=== PATIENT | female | born 1935 | race Hispanic/Latino ===

== ENCOUNTER 2021-04-23 10:30 | Outpatient (CLI) | payer MEDICARE | END 2021-04-23 10:31 | disposition home or self-care (01) | LOC: DTY/OP 10:30 | PROVIDERS: ATTEND Family Medicine Sports Medicine | DX: N18.4 Chronic kidney disease, stage 4 (severe) (principal) | CPT/HCPCS: 97802 ==

== ENCOUNTER 2023-03-13 12:02 | Observation (INO) | payer MEDICARE ==
[2023-03-13] MEDS ORDERED: fentaNYL 50 mcg/mL 1 mL Vial ONE ×2 (12:59→15:32)
[2023-03-13] MEDS ORDERED: CEFAZOLIN 2 GM VIAL ONE (13:01)
[2023-03-13] MEDS ORDERED: Sodium Chloride 0.9% 100 ML ONE (13:01)
[2023-03-13] MEDS ORDERED: PROPOFOL 200 MG/20 ML VIAL ONE (13:22)
[2023-03-13] MEDS ORDERED: Ondansetron HCl/PF 4 MG/2 ML Vial IVP PRN (13:48)
[2023-03-13] MEDS ORDERED: Promethazine HCl 25 MG/ML VIAL IM PRN (13:48)
[2023-03-13] MEDS ORDERED: Morphine Sulfate 2 MG/ML SYRINGE SLOW IVP PRN (13:48)
[2023-03-13 16:08] VITALS: BMI 31.8
[2023-03-13] MEDS: Ketorolac Tromethamine 30 MG/ML VIAL IVP PRN (19:53)
[2023-03-13] MEDS ORDERED: Amlodipine 10 MG TAB PER TUBE SCH (21:00)
[2023-03-13] MEDS ORDERED: Rosuvastatin 10 MG TAB PER TUBE SCH (21:00)
[2023-03-14] MEDS: Ketorolac Tromethamine 30 MG/ML VIAL IVP PRN (03:32)
[2023-03-14] MEDS ORDERED: Levothyroxine Sodium 100 MCG TAB PER TUBE SCH (06:00)
[2023-03-14] MEDS ORDERED: Calcitriol 0.25 MCG CAP PO SCH (09:00)
[2023-03-14] MEDS ORDERED: Metoprolol Tartrate 25 MG TAB PO SCH (09:00)
[2023-03-14 09:09] VITALS: BP 130/78; TEMP 98
[2023-03-14] MEDS ORDERED: GASTROGRAFIN 30 ML BOT ONE (09:25)
== END 2023-03-14 10:28 | disposition home or self-care (01) ==
LOC: SDC 12:02 → T4-B 14:27
PROVIDERS: ADMIT Internal Medicine Gastroenterology; ATTEND Internal Medicine Gastroenterology
PROC: 0DH63UZ Insertion of Feeding Device into Stomach, Percutaneous Approach (ICD-10-PCS; principal; 2023-03-13)
DX: R13.12 Dysphagia, oropharyngeal phase (principal); C76.0 Malignant neoplasm of head, face and neck; I10 Essential (primary) hypertension; E78.5 Hyperlipidemia, unspecified; C32.9 Malignant neoplasm of larynx, unspecified; E86.0 Dehydration; R63.4 Abnormal weight loss; Z79.899 Other long term (current) drug therapy; Z90.710 Acquired absence of both cervix and uterus; Z96.642 Presence of left artificial hip joint
CPT/HCPCS: 43246; 74150; 82565; J3010; J1885; J2704; J3490; Q9963

== ENCOUNTER 2023-03-20 13:56 | Outpatient (CLI) | payer MEDICARE ==
[~2023-03-20 13:56] MED LIST: Iopamidol 370 76% 100 ML VIAL ONE
== END 2023-03-20 13:57 | disposition home or self-care (01) ==
LOC: CT 13:56
PROVIDERS: ATTEND Radiology Radiation Oncology
DX: R06.02 Shortness of breath (principal); I26.99 Other pulmonary embolism without acute cor pulmonale
CPT/HCPCS: 71275

== ENCOUNTER 2023-03-20 14:34 | Inpatient (IN) | payer MEDICARE ==
[2023-03-20 15:17] LABS: Hematocrit 26.5 % (36.0-47.0); Hemoglobin 9.2 g/dL (12.0-16.0); Mean Corpuscular HGB CONC 34.7 g/dL (32.0-36.0); Mean Corpuscular Hemoglobin 31.8 pg (27.0-31.0); Mean Corpuscular Volume 91.7 fl (78.0-98.0); Mean Platelet Volume 10.8 fL (7.4-10.4); RBC Distribution Width 13.7 % (11.5-14.5); Red Blood Cell (RBC) Count 2.89 mill/uL (4.20-5.40); White Blood Cell (WBC) Count 5.6 10x3/uL (4.8-10.8)
[2023-03-20 15:42] LABS: ALT (SGPT) 12 U/L (8-55); AST (SGOT) 15 U/L (5-34); Albumin 3.4 g/dL (3.4-4.8); Anion Gap 17 mmol/L (10-20); BUN (Urea Nitrogen) 16 mg/dL (9.8-20.1); Bilirubin, Total 0.5 mg/dL (0.2-1.2); Calc. Creatinine Clearance 0 mL/min (70-130); Carbon Dioxide 22 mmol/L (23-31); Chloride 99 mmol/L (98-107); Estimated GFR 56; Globulin 2.4 g/dL (2.4-3.5); Glucose 113 mg/dL (83-110); Potassium 3.8 mmol/L (3.5-5.1); Protein, Total 5.8 g/dL (5.8-8.1); Sodium 134 mmol/L (136-145)
[2023-03-20 15:49] LABS: Alkaline Phosphatase 63 U/L (40-110); Calcium 8.1 mg/dL (7.8-10.44)
[2023-03-20 15:56] LABS: Delete Auto Diff?? YES; Manual Diff?? YES; Platelet Count 66 10x3/uL (130-400)
[2023-03-20 16:02] LABS: INR-International Normal Ratio 1.1; PTT 26.5 sec (22.9-36.1); Prothrombin Time 14.1 sec (12.0-14.7)
[2023-03-20 16:03] LABS: CKMB 2.1 ng/mL (0-6.6)
[2023-03-20 16:24] LABS: Band 15 % (5-11); Burr Cells SLIGHT = 2-5 cells HPF (0-1); CellaVision Operator ID LAB.KB; Dohle Bodies SLIGHT; Hypersegmented Neutrophil SLIGHT (None Seen); Lymphocytes 3 % (21-51); Macrocytosis SLIGHT = 6-15 cells HPF (0-5); Monocytes 4 % (0-10); Neutrophil 78 % (42-75); Ovalocytes SLIGHT = 2-5 cells HPF (0-1); Platelet Adequacy Comment Platelets Decreased; Smudge Cells 8.9 %; Total Cell Count 101
[2023-03-20] MEDS ORDERED: Heparin 25,000 units/D5W 500 ML ONE (16:43)
[2023-03-20] MEDS ORDERED: Heparin 10,000 UNITS/ 10 ML VIAL ONE (16:43)
[2023-03-20] MEDS ORDERED: Ondansetron PF 4 MG/2 ML Vial IVP PRN (17:22)
[2023-03-20] MEDS ORDERED: Ondansetron ODT 4 MG TAB PO PRN (17:22)
[2023-03-20] MEDS ORDERED: Heparin 10,000 UNITS/ 10 ML VIAL SLOW IVP SCH (18:00)
[2023-03-20] MEDS ORDERED: Heparin 25,000 units/D5W 500 ML IVPB SCH (18:00)
[2023-03-20 18:20] LABS: Hematocrit 25.2 % (36.0-47.0); Hemoglobin 8.7 g/dL (12.0-16.0)
[2023-03-20 18:27] LABS: Platelet Count 64 10x3/uL (130-400)
[2023-03-20 18:42] LABS: Troponin I 0.056 ng/mL (< 0.028)
[2023-03-20 18:52] LABS: PTT Greater than 250.0 sec (22.9-36.1)
[2023-03-20 21:30] LABS: Troponin I 0.064 ng/mL (< 0.028)
[2023-03-21 05:19] VITALS: BMI 31.1
[2023-03-21 05:31] LABS: #Monocytes 0.4 thou/uL (0.11-0.59); #Neutrophils 3.2 thou/uL (1.40-6.50); %Basophils 0.5 % (0.0-1.0); %Eosinophils 0.5 % (0.0-10.0); %Lymphocytes 11.7 % (21.0-51.0); %Monocytes 9.1 % (0.0-10.0); %Neutrophils 77.5 % (42.0-75.0); Hematocrit 26.4 % (36.0-47.0); Hemoglobin 8.9 g/dL (12.0-16.0); Mean Corpuscular HGB CONC 33.7 g/dL (32.0-36.0); Mean Corpuscular Hemoglobin 31.7 pg (27.0-31.0); Mean Platelet Volume 10.7 fL (7.4-10.4); RBC Distribution Width 13.9 % (11.5-14.5); Red Blood Cell (RBC) Count 2.81 mill/uL (4.20-5.40); White Blood Cell (WBC) Count 4.2 10x3/uL (4.8-10.8)
[2023-03-21 05:48] LABS: Platelet Count 50 10x3/uL (130-400)
[2023-03-21 05:56] LABS: Anion Gap 14 mmol/L (10-20); BUN (Urea Nitrogen) 12 mg/dL (9.8-20.1); Calc. Creatinine Clearance 60 mL/min (70-130); Calcium 8.3 mg/dL (7.8-10.44); Carbon Dioxide 25 mmol/L (23-31); Chloride 103 mmol/L (98-107); Estimated GFR 69; Glucose 96 mg/dL (83-110); Potassium 3.7 mmol/L (3.5-5.1); Sodium 138 mmol/L (136-145)
[2023-03-21] MEDS ORDERED: [UNRECOGNIZED DRUG - REMARK] IVPB PRN (11:11)
[2023-03-21] MEDS ORDERED: Lidocaine-Prilocaine 2.5% Cream 5 GM TUBE TOP PRN (12:00)
[2023-03-21] MEDS: Cefepime 1 GM in Sodium Chloride 0.9% 100 ML IVPB SCH ×2 (12:32→23:49)
[2023-03-21] MEDS ORDERED: Vancomycin 1.5 GRAM/300 ML BAG 1.5 GM in Premix Bag 1 BAG IVPB SCH (13:00)
[2023-03-21] MEDS ORDERED: Magnesium 2 GM/50 ML(in water) 2 GM in Premix Bag 1 BAG IVPB SCH (13:30)
[2023-03-21] MEDS ORDERED: hydrALAZINE 20 MG/ML VIAL SLOW IVP PRN (16:59)
[2023-03-21 17:45] LABS: Hemoglobin 9.9 g/dL (12.0-16.0)
[2023-03-21 17:47] LABS: Platelet Count 34 10x3/uL (130-400)
[2023-03-21] MEDS: Amlodipine 10 MG TAB PO SCH (21:59)
[2023-03-21] MEDS: Rosuvastatin 10 MG TAB PO SCH (21:59)
[2023-03-21] MEDS: Acetaminophen 325 MG TAB PO PRN (23:10)
[2023-03-22] MEDS: Levothyroxine Sodium 100 MCG TAB PO SCH (06:25)
[2023-03-22 07:46] LABS: Hematocrit 23.9 % (36.0-47.0); Hemoglobin 8.2 g/dL (12.0-16.0); Mean Corpuscular HGB CONC 34.3 g/dL (32.0-36.0); Mean Corpuscular Hemoglobin 31.5 pg (27.0-31.0); Mean Corpuscular Volume 91.9 fl (78.0-98.0); Mean Platelet Volume 9.8 fL (7.4-10.4); Platelet Count 98 10x3/uL (130-400); White Blood Cell (WBC) Count 4.7 10x3/uL (4.8-10.8)
[2023-03-22 07:55] LABS: Manual Diff?? YES
[2023-03-22 07:56] LABS: Delete Auto Diff?? YES
[2023-03-22 08:08] LABS: Anion Gap 13 mmol/L (10-20); BUN (Urea Nitrogen) 10 mg/dL (9.8-20.1); Calc. Creatinine Clearance 60 mL/min (70-130); Calcium 8.5 mg/dL (7.8-10.44); Carbon Dioxide 26 mmol/L (23-31); Chloride 104 mmol/L (98-107); Estimated GFR 69; Glucose 135 mg/dL (83-110); Magnesium 1.7 mg/dL (1.6-2.6); Potassium 3.1 mmol/L (3.5-5.1); Sodium 140 mmol/L (136-145)
[2023-03-22] MEDS: Magnesium Oxide 400 MG TAB PO SCH (08:30)
[2023-03-22] MEDS: Calcitriol 0.25 MCG CAP PO SCH (08:30)
[2023-03-22 10:47] LABS: Band 38 % (5-11); Dohle Bodies SLIGHT; Eosinophils 2 % (0-10); Lymphocytes 2 % (21-51); Metamyelocyte 1 % (0-0); Monocytes 4 % (0-10); Neutrophil 52 % (42-75); Nucleated RBC (Manual Ct) 1 % (0); Platelet Adequacy Comment Platelets Decreased
[2023-03-22 10:49] LABS: Polychromasia SLIGHT = 2-3 cells (100X) (0-2/hpf)
[2023-03-22] MEDS: Cefepime 1 GM in Sodium Chloride 0.9% 100 ML IVPB SCH ×2 (13:37→23:38)
[2023-03-22] MEDS ORDERED: Electrolyte Replacement Protocol 1 EACH FS SCH (13:45)
[2023-03-22] MEDS ORDERED: Potassium Chloride 20 MEQ TAB PO SCH (13:45)
[2023-03-22] MEDS ORDERED: Electrolyte Replacement Protocol FS PRN (13:45)
[2023-03-22] MEDS: VANCOMYCIN 1.25 GM/250 ML BAG 1.25 GM in Premix Bag 1 BAG IVPB SCH (14:38)
[2023-03-22 18:58] LABS: Hematocrit 25.9 % (36.0-47.0)
[2023-03-22 19:01] LABS: Platelet Count 83 10x3/uL (130-400)
[2023-03-22] MEDS: Rosuvastatin 10 MG TAB PO SCH (20:56)
[2023-03-22] MEDS: Amlodipine 10 MG TAB PO SCH (20:56)
[2023-03-23 04:47] LABS: #Eosinphils 0.1 thou/uL (0.0-0.7); #Monocytes 0.3 thou/uL (0.11-0.59); #Neutrophils 2.4 thou/uL (1.40-6.50); %Basophils 0.3 % (0.0-1.0); %Eosinophils 1.6 % (0.0-10.0); %Lymphocytes 11.5 % (21.0-51.0); %Monocytes 10.6 % (0.0-10.0); %Neutrophils 73.5 % (42.0-75.0); Hematocrit 22.5 % (36.0-47.0); Hemoglobin 7.9 g/dL (12.0-16.0); Mean Corpuscular HGB CONC 35.1 g/dL (32.0-36.0); Mean Corpuscular Hemoglobin 31.5 pg (27.0-31.0); Mean Corpuscular Volume 89.6 fl (78.0-98.0); RBC Distribution Width 14.3 % (11.5-14.5); Red Blood Cell (RBC) Count 2.51 mill/uL (4.20-5.40); White Blood Cell (WBC) Count 3.2 10x3/uL (4.8-10.8)
[2023-03-23 05:00] LABS: Platelet Count 75 10x3/uL (130-400)
[2023-03-23 05:01] LABS: Mean Platelet Volume 10.3 fL (7.4-10.4)
[2023-03-23 05:19] LABS: Anion Gap 11 mmol/L (10-20); BUN (Urea Nitrogen) 11 mg/dL (9.8-20.1); Calc. Creatinine Clearance 60 mL/min (70-130); Calcium 8.4 mg/dL (7.8-10.44); Carbon Dioxide 26 mmol/L (23-31); Chloride 105 mmol/L (98-107); Estimated GFR 69; Glucose 136 mg/dL (83-110); Magnesium 1.5 mg/dL (1.6-2.6); Potassium 3.3 mmol/L (3.5-5.1); Sodium 139 mmol/L (136-145)
[2023-03-23] MEDS: Levothyroxine Sodium 100 MCG TAB PO SCH (06:39)
[2023-03-23] MEDS ORDERED: Potassium Bicarbonate/Cit Ac 20 MEQ TAB PO SCH (08:00)
[2023-03-23] MEDS ORDERED: Magnesium 2 GM/50 ML(in water) 2 GM in Premix Bag 1 BAG IVPB SCH (08:00)
[2023-03-23] MEDS ORDERED: Potassium Chloride 20 MEQ TAB PO SCH (08:00)
[2023-03-23] MEDS: PHOS-NAK 1 PKT PACK PO SCH ×2 (09:09→12:36)
[2023-03-23] MEDS: Calcitriol 0.25 MCG CAP PO SCH (09:09)
[2023-03-23] MEDS: Magnesium Oxide 400 MG TAB PO SCH (09:10)
[2023-03-23] MEDS: Cefepime 1 GM in Sodium Chloride 0.9% 100 ML IVPB SCH (12:36)
[2023-03-23 12:40] LABS: Vancomycin, Trough 15.9 ug/mL
[2023-03-23] MEDS: VANCOMYCIN 1.25 GM/250 ML BAG 1.25 GM in Premix Bag 1 BAG IVPB SCH (15:06)
[2023-03-23] MEDS: Rosuvastatin 10 MG TAB PO SCH (20:12)
[2023-03-23] MEDS: Amlodipine 10 MG TAB PO SCH (20:12)
[2023-03-24] MEDS: Cefepime 1 GM in Sodium Chloride 0.9% 100 ML IVPB SCH ×2 (00:28→12:57)
[2023-03-24 04:33] LABS: #Monocytes 0.4 thou/uL (0.11-0.59); %Basophils 0.3 % (0.0-1.0); %Eosinophils 1.3 % (0.0-10.0); %Monocytes 12.3 % (0.0-10.0); %Neutrophils 65.4 % (42.0-75.0); Hemoglobin 8.6 g/dL (12.0-16.0); Mean Corpuscular HGB CONC 34.4 g/dL (32.0-36.0); Mean Corpuscular Hemoglobin 31.9 pg (27.0-31.0); Mean Platelet Volume 10.2 fL (7.4-10.4); RBC Distribution Width 14.7 % (11.5-14.5)
[2023-03-24 04:38] LABS: Mean Corpuscular Volume 92.6 fl (78.0-98.0); Platelet Count 80 10x3/uL (130-400)
[2023-03-24 05:02] LABS: Anion Gap 13 mmol/L (10-20); BUN (Urea Nitrogen) 13 mg/dL (9.8-20.1); Calc. Creatinine Clearance 60 mL/min (70-130); Calcium 8.6 mg/dL (7.8-10.44); Carbon Dioxide 24 mmol/L (23-31); Chloride 104 mmol/L (98-107); Estimated GFR 68; Glucose 111 mg/dL (83-110); Magnesium 1.4 mg/dL (1.6-2.6); Sodium 137 mmol/L (136-145)
[2023-03-24] MEDS: Levothyroxine Sodium 100 MCG TAB PO SCH (05:09)
[2023-03-24] MEDS ORDERED: Magnesium Sulfate In Water 4 GM in Premix Bag 1 BAG IVPB SCH (08:00)
[2023-03-24] MEDS: Calcitriol 0.25 MCG CAP PO SCH (10:17)
[2023-03-24] MEDS: Magnesium Oxide 400 MG TAB PO SCH (10:17)
[2023-03-24] MEDS: Acetaminophen 325 MG TAB PO PRN (10:25)
[2023-03-24] MEDS: VANCOMYCIN 1.25 GM/250 ML BAG 1.25 GM in Premix Bag 1 BAG IVPB SCH (15:03)
[2023-03-24 18:29] LABS: Hematocrit 24.3 % (36.0-47.0); Hemoglobin 8.3 g/dL (12.0-16.0)
[2023-03-24 18:36] LABS: Platelet Count 85 10x3/uL (130-400)
[2023-03-24] MEDS: Amlodipine 10 MG TAB PO SCH (20:34)
[2023-03-24] MEDS: Rosuvastatin 10 MG TAB PO SCH (20:35)
[2023-03-24] MEDS: Apixaban 5 MG TAB PO SCH (20:35)
[2023-03-25] MEDS: Cefepime 1 GM in Sodium Chloride 0.9% 100 ML IVPB SCH ×2 (00:15→12:32)
[2023-03-25 04:08] LABS: #Eosinphils 0.1 thou/uL (0.0-0.7); #Monocytes 0.4 thou/uL (0.11-0.59); #Neutrophils 1.7 thou/uL (1.40-6.50); %Basophils 0.7 % (0.0-1.0); %Eosinophils 1.9 % (0.0-10.0); %Lymphocytes 13.1 % (21.0-51.0); %Monocytes 14.9 % (0.0-10.0); %Neutrophils 64.9 % (42.0-75.0); Hemoglobin 7.8 g/dL (12.0-16.0); Mean Corpuscular HGB CONC 33.9 g/dL (32.0-36.0); Mean Corpuscular Hemoglobin 31.7 pg (27.0-31.0); Mean Corpuscular Volume 93.5 fl (78.0-98.0); Mean Platelet Volume 10.4 fL (7.4-10.4); RBC Distribution Width 15.1 % (11.5-14.5); Red Blood Cell (RBC) Count 2.46 mill/uL (4.20-5.40); White Blood Cell (WBC) Count 2.7 10x3/uL (4.8-10.8)
[2023-03-25 04:09] LABS: Platelet Count 85 10x3/uL (130-400)
[2023-03-25 04:29] LABS: Anion Gap 11 mmol/L (10-20); BUN (Urea Nitrogen) 15 mg/dL (9.8-20.1); Calc. Creatinine Clearance 60 mL/min (70-130); Carbon Dioxide 25 mmol/L (23-31); Chloride 103 mmol/L (98-107); Potassium 4.1 mmol/L (3.5-5.1); Sodium 135 mmol/L (136-145)
[2023-03-25 04:30] LABS: Calcium 8.6 mg/dL (7.8-10.44); Estimated GFR 69; Glucose 136 mg/dL (83-110)
[2023-03-25] MEDS: Levothyroxine Sodium 100 MCG TAB PO SCH (05:02)
[2023-03-25] MEDS ORDERED: Magnesium 2 GM/50 ML(in water) 2 GM in Premix Bag 1 BAG IVPB SCH (09:00)
[2023-03-25] MEDS: Apixaban 5 MG TAB PO SCH ×2 (09:26→21:45)
[2023-03-25] MEDS: Magnesium Oxide 400 MG TAB PO SCH (09:26)
[2023-03-25] MEDS: Calcitriol 0.25 MCG CAP PO SCH (09:26)
[2023-03-25] MEDS: VANCOMYCIN 1.25 GM/250 ML BAG 1.25 GM in Premix Bag 1 BAG IVPB SCH (13:30)
[2023-03-25] MEDS: Amlodipine 10 MG TAB PO SCH (21:45)
[2023-03-25] MEDS: Acetaminophen 325 MG TAB PO PRN (21:45)
[2023-03-25] MEDS: Rosuvastatin 10 MG TAB PO SCH (21:45)
[2023-03-26] MEDS: Cefepime 1 GM in Sodium Chloride 0.9% 100 ML IVPB SCH ×2 (00:38→12:57)
[2023-03-26 04:18] LABS: #Eosinphils 0.1 thou/uL (0.0-0.7); #Monocytes 0.6 thou/uL (0.11-0.59); #Neutrophils 1.8 thou/uL (1.40-6.50); %Monocytes 18.6 % (0.0-10.0); %Neutrophils 58.5 % (42.0-75.0); Hematocrit 25.3 % (36.0-47.0); Hemoglobin 8.6 g/dL (12.0-16.0); Mean Corpuscular Hemoglobin 32.1 pg (27.0-31.0); Mean Corpuscular Volume 94.4 fl (78.0-98.0); Mean Platelet Volume 10.6 fL (7.4-10.4); RBC Distribution Width 15.7 % (11.5-14.5); Red Blood Cell (RBC) Count 2.68 mill/uL (4.20-5.40); White Blood Cell (WBC) Count 3.1 10x3/uL (4.8-10.8)
[2023-03-26 04:28] LABS: Platelet Count 116 10x3/uL (130-400)
[2023-03-26 04:42] LABS: Magnesium 1.9 mg/dL (1.6-2.6)
[2023-03-26] MEDS: Levothyroxine Sodium 100 MCG TAB PO SCH (05:38)
[2023-03-26] MEDS ORDERED: Magnesium 2 GM/50 ML(in water) 2 GM in Premix Bag 1 BAG IVPB SCH (09:00)
[2023-03-26] MEDS: Apixaban 5 MG TAB PO SCH ×2 (09:05→20:55)
[2023-03-26] MEDS: Magnesium Oxide 400 MG TAB PO SCH (09:05)
[2023-03-26] MEDS: Calcitriol 0.25 MCG CAP PO SCH (09:05)
[2023-03-26 12:16] LABS: Vancomycin, Trough 19.9 ug/mL
[2023-03-26] MEDS ORDERED: Vancomycin 1 GM in Premix Bag 1 BAG IVPB SCH (15:00)
[2023-03-26 19:09] LABS: Hematocrit 24.8 % (36.0-47.0); Hemoglobin 8.3 g/dL (12.0-16.0); Platelet Count 127 10x3/uL (130-400)
[2023-03-26] MEDS: Amlodipine 10 MG TAB PO SCH (20:54)
[2023-03-26] MEDS: Rosuvastatin 10 MG TAB PO SCH (20:54)
[2023-03-27] MEDS: Cefepime 1 GM in Sodium Chloride 0.9% 100 ML IVPB SCH (00:23)
[2023-03-27 04:57] LABS: #Eosinphils 0.1 thou/uL (0.0-0.7); #Monocytes 0.5 thou/uL (0.11-0.59); %Basophils 0.6 % (0.0-1.0); %Eosinophils 2.8 % (0.0-10.0); %Lymphocytes 15.7 % (21.0-51.0); %Monocytes 16.4 % (0.0-10.0); %Neutrophils 61.4 % (42.0-75.0); Hematocrit 25.5 % (36.0-47.0); Hemoglobin 8.5 g/dL (12.0-16.0); Mean Corpuscular HGB CONC 33.3 g/dL (32.0-36.0); Mean Corpuscular Hemoglobin 32.1 pg (27.0-31.0); Mean Corpuscular Volume 96.2 fl (78.0-98.0); Mean Platelet Volume 9.9 fL (7.4-10.4); Platelet Count 134 10x3/uL (130-400); RBC Distribution Width 15.9 % (11.5-14.5); Red Blood Cell (RBC) Count 2.65 mill/uL (4.20-5.40); White Blood Cell (WBC) Count 3.2 10x3/uL (4.8-10.8)
[2023-03-27 05:29] LABS: Anion Gap 12 mmol/L (10-20); BUN (Urea Nitrogen) 20 mg/dL (9.8-20.1); Calc. Creatinine Clearance 59 mL/min (70-130); Calcium 9.5 mg/dL (7.8-10.44); Carbon Dioxide 26 mmol/L (23-31); Chloride 104 mmol/L (98-107); Estimated GFR 67; Glucose 104 mg/dL (83-110); Magnesium 1.7 mg/dL (1.6-2.6); Potassium 4.8 mmol/L (3.5-5.1); Sodium 137 mmol/L (136-145)
[2023-03-27] MEDS: Levothyroxine Sodium 100 MCG TAB PO SCH (05:38)
[2023-03-27 07:42] VITALS: BP 133/65; TEMP 98
[2023-03-27] MEDS ORDERED: Magnesium 2 GM/50 ML(in water) 2 GM in Premix Bag 1 BAG IVPB SCH (08:00)
[2023-03-27] MEDS: Apixaban 5 MG TAB PO SCH (08:33)
[2023-03-27] MEDS: Calcitriol 0.25 MCG CAP PO SCH (08:33)
[2023-03-27] MEDS: Magnesium Oxide 400 MG TAB PO SCH (08:33)
== END 2023-03-27 10:30 | disposition home health service (06) | DRG 146 ==
LOC: ERS 14:34 → ERHOLD 17:26 → 2NO 21:35
PROVIDERS: ADMIT Internal Medicine; ATTEND Internal Medicine
PROC: 6A551Z2 Pheresis of Platelets, Multiple (ICD-10-PCS; principal; 2023-03-21)
DX: C11.9 Malignant neoplasm of nasopharynx, unspecified (principal); I26.99 Other pulmonary embolism without acute cor pulmonale; J96.01 Acute respiratory failure with hypoxia; I82.432 Acute embolism and thrombosis of left popliteal vein; K94.22 Gastrostomy infection; I24.8 Other forms of acute ischemic heart disease; Y83.8 Other surgical procedures as the cause of abnormal reaction of the patient, or of later complication, without mention of misadventure at the time of the procedure; C30.0 Malignant neoplasm of nasal cavity; Z96.643 Presence of artificial hip joint, bilateral; E78.2 Mixed hyperlipidemia; M06.9 Rheumatoid arthritis, unspecified; I12.9 Hypertensive chronic kidney disease with stage 1 through stage 4 chronic kidney disease, or unspecified chronic kidney disease; N18.9 Chronic kidney disease, unspecified; D69.6 Thrombocytopenia, unspecified; Z79.890 Hormone replacement therapy; Z79.899 Other long term (current) drug therapy; Z98.49 Cataract extraction status, unspecified eye; T45.1X5A Adverse effect of antineoplastic and immunosuppressive drugs, initial encounter; E87.6 Hypokalemia; E83.42 Hypomagnesemia
CPT/HCPCS: 36415; 36416; 36430; 71275; 77386; 80048; 80053; 80202; 82248; 82553; 83615; 83735; 84100; 84484; 84550; 85014; 85018; 85025; 85049; 85610; 85730; 86850; 86900; 86901; 93005; 93306; 94760; 96365; 96366; 96375; 97139; J0692; J1644; J1650; J3370; J3370-JW; J3475; J3490; P9035; Q9967

== ENCOUNTER 2023-04-25 16:45 | Observation (INO) | payer MEDICARE ==
[~2023-04-25 16:45] MED LIST changes: -Iopamidol 370 76% 100 ML VIAL ONE; +Iopamidol-370 76% 500 ML MDV (1 ML CHARGE) ONE
[2023-04-25 17:59] LABS: #Monocytes 0.7 thou/uL (0.11-0.59); #Neutrophils 5.7 thou/uL (1.40-6.50); %Basophils 0.4 % (0.0-1.0); %Eosinophils 0.4 % (0.0-10.0); %Lymphocytes 14.6 % (21.0-51.0); %Monocytes 9.5 % (0.0-10.0); %Neutrophils 74.7 % (42.0-75.0); Hematocrit 30.9 % (36.0-47.0); Hemoglobin 10.4 g/dL (12.0-16.0); Mean Corpuscular HGB CONC 33.7 g/dL (32.0-36.0); Mean Corpuscular Volume 98.1 fl (78.0-98.0); Mean Platelet Volume 8.8 fL (7.4-10.4); Platelet Count 260 10x3/uL (130-400); RBC Distribution Width 15.5 % (11.5-14.5); Red Blood Cell (RBC) Count 3.15 mill/uL (4.20-5.40); White Blood Cell (WBC) Count 7.6 10x3/uL (4.8-10.8)
[2023-04-25 18:25] LABS: ALT (SGPT) 15 U/L (8-55); AST (SGOT) 21 U/L (5-34); Albumin 3.8 g/dL (3.4-4.8); Alkaline Phosphatase 72 U/L (40-110); Anion Gap 17 mmol/L (10-20); BUN (Urea Nitrogen) 27 mg/dL (9.8-20.1); Bilirubin, Total 0.5 mg/dL (0.2-1.2); Calc. Creatinine Clearance 0 mL/min (70-130); Calcium 10.9 mg/dL (7.8-10.44); Carbon Dioxide 22 mmol/L (23-31); Chloride 100 mmol/L (98-107); Estimated GFR 38; Globulin 3.5 g/dL (2.4-3.5); Glucose 96 mg/dL (83-110); Magnesium 1.5 mg/dL (1.6-2.6); Protein, Total 7.3 g/dL (5.8-8.1); Sodium 135 mmol/L (136-145)
[2023-04-25] MEDS ORDERED: Magnesium 2 GM/50 ML BAG (IN WATER) ONE (18:36)
[2023-04-25] MEDS ORDERED: Acetaminophen 325 MG TAB PO PRN (20:58)
[2023-04-25] MEDS ORDERED: Ondansetron PF 4 MG/2 ML Vial IVP PRN (20:58)
[2023-04-25] MEDS ORDERED: Ondansetron ODT 4 MG TAB PO PRN (20:58)
[2023-04-25] MEDS ORDERED: Fluticasone Propionate Nasal Spray 16 gm Bottle NASAL SCH (21:30)
[2023-04-25] MEDS ORDERED: Apixaban 5 MG TAB PO SCH (21:30)
[2023-04-25] MEDS ORDERED: Sodium Chloride 0.9% 1,000 ML IV SCH (21:45)
[2023-04-25 23:05] VITALS: BMI 28.5
[2023-04-26] MEDS ORDERED: Electrolyte Replacement Protocol 1 EACH FS SCH (04:45)
[2023-04-26 05:19] LABS: #Eosinphils 0.1 thou/uL (0.0-0.7); #Monocytes 0.6 thou/uL (0.11-0.59); #Neutrophils 3.6 thou/uL (1.40-6.50); %Basophils 0.6 % (0.0-1.0); %Eosinophils 1.8 % (0.0-10.0); %Lymphocytes 14.3 % (21.0-51.0); %Monocytes 12.3 % (0.0-10.0); %Neutrophils 70.8 % (42.0-75.0); Hematocrit 25.5 % (36.0-47.0); Hemoglobin 8.6 g/dL (12.0-16.0); Mean Corpuscular HGB CONC 33.7 g/dL (32.0-36.0); Mean Corpuscular Hemoglobin 32.3 pg (27.0-31.0); Mean Corpuscular Volume 95.9 fl (78.0-98.0); Platelet Count 232 10x3/uL (130-400); RBC Distribution Width 15.6 % (11.5-14.5); Red Blood Cell (RBC) Count 2.66 mill/uL (4.20-5.40); White Blood Cell (WBC) Count 5.1 10x3/uL (4.8-10.8)
[2023-04-26 05:41] LABS: Phosphorus 4.2 mg/dL (2.3-4.7)
[2023-04-26] MEDS ORDERED: Magnesium 2 GM/50 ML(in water) 2 GM in Premix Bag 1 BAG IVPB SCH (05:45)
[2023-04-26 05:50] LABS: Anion Gap 13 mmol/L (10-20); BUN (Urea Nitrogen) 19 mg/dL (9.8-20.1); Calc. Creatinine Clearance 41 mL/min (70-130); Carbon Dioxide 23 mmol/L (23-31); Chloride 105 mmol/L (98-107); Estimated GFR 48; Glucose 82 mg/dL (83-110); Potassium 3.9 mmol/L (3.5-5.1); Sodium 137 mmol/L (136-145)
[2023-04-26] MEDS ORDERED: Levothyroxine Sodium 100 MCG TAB PO SCH (06:00)
[2023-04-26 08:15] VITALS: TEMP 97.5
[2023-04-26] MEDS ORDERED: Fluticasone Propionate Nasal Spray 16 gm Bottle NASAL SCH (09:00)
[2023-04-26] MEDS ORDERED: Apixaban 5 MG TAB PO SCH (09:00)
[2023-04-26 12:59] VITALS: BP 119/65
[2023-04-26] MEDS ORDERED: Rosuvastatin 10 MG TAB PO SCH (21:00)
[2023-04-26] MEDS ORDERED: Amlodipine 10 MG TAB PO SCH (21:00)
[2023-04-27] MEDS ORDERED: Calcitriol 0.25 MCG CAP PO SCH (09:00)
[2023-04-27] MEDS ORDERED: Non-Formulary Item 1 EACH (Calcitriol [Calcitriol] 0.5 MCG Capsule) PO SCH (09:00)
== END 2023-04-26 17:22 | disposition home or self-care (01) ==
LOC: ERS 16:45 → T4-B 19:50
PROVIDERS: ADMIT Hospitalist; ATTEND Internal Medicine
DX: K94.23 Gastrostomy malfunction (principal); E83.42 Hypomagnesemia; E87.1 Hypo-osmolality and hyponatremia; I12.9 Hypertensive chronic kidney disease with stage 1 through stage 4 chronic kidney disease, or unspecified chronic kidney disease; N18.30 Chronic kidney disease, stage 3 unspecified; N17.9 Acute kidney failure, unspecified; E86.0 Dehydration; C76.0 Malignant neoplasm of head, face and neck; E03.9 Hypothyroidism, unspecified; Z79.899 Other long term (current) drug therapy; Z79.890 Hormone replacement therapy; Z86.711 Personal history of pulmonary embolism
CPT/HCPCS: 74018; 74177; 80048; 80053; 83735 ×2; 84100; 85025 ×2; 96365; 96366; 99285; G0378 ×3; 36415; J3475; J7050; Q9967

== ENCOUNTER 2023-06-30 09:30 | Outpatient (CLI) | payer MEDICARE | END 2023-06-30 09:31 | disposition home or self-care (01) | LOC: PET 09:30 | PROVIDERS: ATTEND Radiology Radiation Oncology | DX: C30.0 Malignant neoplasm of nasal cavity (principal) | CPT/HCPCS: 78815; A9552 ==